=== PATIENT | female | born 1970 | race African-American/Black ===

== ENCOUNTER 2023-01-09 08:23 | Emergency (ER) | payer MEDICAID, SELFPAY ==
[2023-01-09 08:25] VITALS: BP 180/121; PULSE 63; RESP 20; TEMP 36.1; O2SAT 98; BMI 33.9
--- NOTE | 2023-01-09 08:54 | EX.ED.DYSGE1 ---
HPI History of Present Illness Chief Complaint: Dizziness Narrative Narrative: 52-year-old female presenting with need for refill of prescriptions. She states she has a history of vertigo and hypertension and was recently discharged from [facility] into inpatient rehab at [facility] and they had thrown all of her medications away because they were all mixed in 1 bottle. She states she does not have her blood pressure medicines and she states she supposed to be on lisinopril 20 mg of Lasix 40 mg daily. He was initially seen for alcohol detox. She has a history of marijuana and cocaine abuse as well. Patient states she had a headache and some vertigo symptoms yesterday but they have resolved. No chest pain or shortness of breath. She reports chronic anemia. [facility] Medical History HTN (hypertension) Vertigo Home Medications famotidine 40 mg tablet 40 mg PO DAILY 01/09/23 [History Last Taken Unknown] famotidine 40 mg tablet (Pepcid) 40 mg PO DAILY #30 tabs 01/09/23 [Rx Last Taken Unknown] ferrous sulfate 325 mg (65 mg iron) tablet 325 mg PO DAILY #30 tabs 01/09/23 [Rx Last Taken Unknown] ferrous sulfate 325 mg (65 mg iron) tablet (FeroSul) 325 mg PO DAILY 01/09/23 [History Last Taken Unknown] furosemide 40 mg tablet (Lasix) 40 mg PO DAILY 01/09/23 [History Last Taken Unknown] lisinopril 20 mg tablet 20 mg PO DAILY 01/09/23 [History Last Taken Unknown] lisinopril 20 mg tablet 20 mg PO DAILY #30 tabs 01/09/23 [Rx Last Taken Unknown] meclizine 25 mg tablet 25 mg PO TID PRN dizziness #60 tabs 01/09/23 [Rx Last Taken Unknown] potassium chloride 10 mEq tablet,extended release (K-Tab) 20 meq PO DAILY 01/09/23 [History Last Taken Unknown] potassium chloride 20 mEq tablet,extended release 20 meq PO DAILY #30 tabs 01/09/23 [Rx Last Taken Unknown] Allergy/AdvReac Type Severity Reaction Status Date / Time No Known Allergies Allergy Verified 01/09/23 08:24 Surgical History Hx of appendectomy Social History Smoking Status: Current every day smoker tobacco type: cigarettes ROS ROS ED Review of Systems ROS Unobtainable: Denies due to encephalopathy Constitutional Constitutional ED: Denies chills or fever(s) Eyes Eyes: Denies change in vision or diplopia ENT ENT ED: Denies rhinorrhea or sore throat Cardiovascular Cardiovascular: Denies chest pain or palpitations Respiratory/Chest Respiratory/Chest: Denies cough or dyspnea Gastrointestinal Gastrointestinal: Denies abdominal pain Genitourinary Genitourinary ED: Denies dysuria or hematuria Musculoskeletal Musculoskeletal: Denies arthralgias or back pain Integumentary Denies abscess or Abrasions Neurologic Neurologic: Reports headache(s) Psychiatric Psychiatric: Denies anxiety or depression EXAM Physical Exam Const Vital Signs: 01/09/23 08:25 Temperature 96.9 F L Temperature Source Temporal Pulse Rate 63 Respiratory Rate 20 H Blood Pressure 180/121 H Blood Pressure Mean 140 Pulse Ox 98 Oxygen Delivery Method Room Air Positive well nourished General Appearance ED: NAD HEENT Reports moist mucous membranes HEENT Narrative: Negative Kendall-Hallpike Eyes PERRL Resp normal respiratory effort and clear to auscultation bilaterally Cardio regular rate and regular rhythm GI normal to inspection, nondistended, normoactive bowel sounds Neuro oriented x3 and CN's II-XII intact bilaterally Sensorium / Orientation: alert Psych mental status grossly normal Skin no rashes or lesions noted and no wounds MDM MDM MDM Narrative Medical decision making narrative: Patient presenting for medication refill. Apparently she was recently sent to [facility] for rehab and was at [facility] for alcohol detox, cocaine abuse, marijuana abuse. She states that when she was discharged to [facility] she had all her medications in 1 bottle and for this reason they threw them away because they could not verify them. She has no prescriptions for her medicines. She is also recently diagnosed with vertigo and does not have a she does have a headache or dizziness today. Her blood pressure is a little bit elevated but she does not have any red flag signs or symptoms. She request medication refill. She was given clonidine, meclizine, phenergan for vertigo although I could not reproduce this today. I do not believe she needs any lab work or imaging. I refilled her medications and have them sent to our pharmacy. She will pick these up on her way back to [place]. Impression: 1. medication refill 2. hypertension 3. History of vertigo Discharge Plan Triage Chief Complaint: Dizziness ED Provider: Teofilo Pacheco Dx/Rx/DC Orders Instructions: ED High Blood Pressure Hypertension, ED Vertigo, Unspecified Prescriptions: New famotidine [Pepcid] 40 mg tablet 40 mg PO DAILY Qty: 30 0RF lisinopril 20 mg tablet 20 mg PO DAILY Qty: 30 0RF ferrous sulfate 325 mg (65 mg iron) tablet 325 mg PO DAILY Qty: 30 0RF potassium chloride 20 mEq tablet extended release 20 meq PO DAILY Qty: 30 0RF meclizine 25 mg tablet 25 mg PO TID PRN (Reason: dizziness) Qty: 60 0RF No Action famotidine 40 mg tablet 40 mg PO DAILY ferrous sulfate [FeroSul] 325 mg (65 mg iron) tablet 325 mg PO DAILY furosemide [Lasix] 40 mg tablet 40 mg PO DAILY lisinopril 20 mg tablet 20 mg PO DAILY potassium chloride [K-Tab] 10 mEq tablet extended release 20 meq PO DAILY Primary Care Provider: Care Physician,No Primary Referrals: Care Physician,No Primary [Primary Care Provider] - Disposition Disposition: Home, Self Care Discharge Date/Time: 01/09/23 10:17
[2023-01-09] MEDS: Meclizine HCl 25 MG Tablet PO (09:04)
[2023-01-09] MEDS: cloNIDine HCl 0.1 MG Tablet PO (09:04)
== END 2023-01-09 10:17 | disposition home or self-care (01) ==
PROVIDERS: Emergency Provider Student in an Organized Health Care Education/Training Program; Visit Provider Student in an Organized Health Care Education/Training Program
DX: Z76.0 Encounter for issue of repeat prescription (principal); F17.210 Nicotine dependence, cigarettes, uncomplicated; I10 Essential (primary) hypertension; Z79.899 Other long term (current) drug therapy
CPT/HCPCS: 99285